=== PATIENT | male | born 1970 | race Two or more races ===

== ENCOUNTER → 2018-03-05 | Outpatient (CLI) | payer OTHER | END | disposition home or self-care (01) | LOC: CFH 10:17 | PROVIDERS: ATTEND Nurse Practitioner Family | DX: M25.561 Pain in right knee (principal) ==

== ENCOUNTER 2020-06-29 07:18 | Outpatient (CLI) | payer OTHER ==
[2020-12-20] MEDS ORDERED: METF-734 PO (21:57)
[2020-12-20] MEDS ORDERED: ROSU5TAB12 PO (21:57)
[2020-12-20] MEDS ORDERED: SITA100T PO (21:57)
[2020-12-20] MEDS ORDERED: GLYB5TAB3 PO (21:57)
[2020-12-20] MEDS ORDERED: LISI20TA21 PO (21:57)
[2020-12-20] MEDS ORDERED: AMLO-210 PO (21:57)
== END 2020-06-29 23:59 | disposition home or self-care (01) ==
LOC: RAD 07:18
PROVIDERS: ATTEND Nurse Practitioner Family
DX: R22.9 Localized swelling, mass and lump, unspecified (principal)